=== PATIENT | male | born 1965 | race Caucasian/White ===

== ENCOUNTER → 2023-04-15 12:54 | Outpatient (REF) | payer OTHER, SELFPAY | LOC: DHCBS MAIN 12:54 | PROVIDERS: ATTENDING PHYSICIAN Internal Medicine Interventional Cardiology; FAMILY PHYSICIAN Family Medicine | DX: R06.09 Other forms of dyspnea (principal); R00.2 Palpitations; R07.89 Other chest pain | CPT/HCPCS: 93306 ==

== ENCOUNTER → 2023-04-20 06:54 | Outpatient (REF) | payer OTHER, SELFPAY | LOC: RCS 06:54 | PROVIDERS: ATTENDING PHYSICIAN Internal Medicine Interventional Cardiology; FAMILY PHYSICIAN Family Medicine | DX: R06.09 Other forms of dyspnea (principal); R00.2 Palpitations; R07.89 Other chest pain | CPT/HCPCS: 78452; 93017; A9500 ==

== ENCOUNTER → 2025-01-30 07:01 | Outpatient (REF) | payer BC, SELFPAY | LOC: RCS 07:01 | PROVIDERS: ATTENDING PHYSICIAN Internal Medicine Interventional Cardiology; FAMILY PHYSICIAN Family Medicine | DX: R06.09 Other forms of dyspnea (principal); R00.2 Palpitations; R07.89 Other chest pain; E78.2 Mixed hyperlipidemia | CPT/HCPCS: 93306 ==